=== PATIENT | female | born 2005 | race Hispanic/Latino ===

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

== ENCOUNTER 2025-02-12 04:06 | Emergency (ER) | payer SELFPAY ==
[~2025-02-12] VITALS: Ht 160 cm; Wt 65.8 kg
--- NOTE | 2025-02-12 04:12 | NUR ---
UA CUP PROVIDED
--- NOTE | 2025-02-12 04:58 | ERN ---
General Chief Complaint: Multiple Complaints Stated Complaint: ABD PAIN, BLOOD STOOLS Time Seen by MD: 04:13 Source: patient History of Present Illness Initial Comments 19-year-old female who comes in with concerns of abdominal pain and black stools. She has had associated diarrhea and nausea since July of this year. She states that she has been at [facility] where she was diagnosed with gastritis. They prescribed Pepcid and she missed a single dose of her Pepcid and her abdominal pain is back. Patient also states she has a history of anemia requiring numerous transfusions. Surgical history is an appendectomy and removal of an ovarian cyst. Looking through her medications she is also taking Levsin 0 0.125 mg. Allergies: Coded Allergies: No Known Drug Allergies (Unverified Allergy, Unknown, 04/16/19) Past Medical History Past Medical History: Other Medical History Other: GASTRITIS Past Surgical History: Appendectomy Surgical History Other: ovarian cyst removal Constitutional: (-) chills, (-) diaphoresis, (-) fever, (-) malaise, (-) weakness, (-) other documentation EENTM: (-) eye pain, (-) blurred vision, (-) tearing, (-) double vision, (-) ear pain, (-) ear discharge, (-) nose pain, (-) nose congestion, (-) throat pain, (-) Throat swelling, (-) mouth pain, (-) tooth pain, (-) mouth swelling, (-) other documentation Respiratory: (-) cough, (-) orthopnea, (-) short of breath, (-) stridor, (-) wheezing, (-) other documentation Cardiovascular: (-) chest pain, (-) edema, (-) palpitations, (-) syncope, (-) dyspnea on exertion, (-) other documentation Gastrointestinal/Abdominal: (+) nausea Genitourinary: (-) vaginal discharge, (-) vaginal bleeding, (-) dysuria, (-) frequency, (-) hematuria, (-) pain, (-) other documentation Musculoskeletal: (-) Neck pain, (-) back pain, (-) Flank Pain, (-) joint pain, (-) joint swelling, (-) muscle pain, (-) muscle stiffness, (-) gout, (-) other documentation Skin: (-) laceration, (-) contusion, (-) abrasion, (-) abscess, (-) rash, (-) change in color, (-) change in hair, (-) change in nails, (-) diaphoresis, (-) dryness, (-) other documentation Neuro: (-) altered mental status, (-) headache, (-) syncope, (-) paralysis, (-) numbness, (-) seizure, (-) pre-existing deficit, (-) tremors, (-) weakness, (-) dizziness, (-) slurred speech, (-) vertigo, (-) other documentation Physical Exam General Appearance: (+) mild distress Orientation: (+) alert, (+) oriented x 3 Head/Face Trauma: No Eye: bilateral eye normal inspection, bilateral eye PERRL, bilateral eye EOMI Ear, Nose, Throat: (+) hearing grossly normal, (+) normal ENT inspection, (+) moist mucous membraine Neck: (+) normal inspection, (+) supple, (+) full range of motion Respiratory: (+) chest non-tender, (+) lungs clear, (+) well ventilated Heart: (+) regular, (+) no gallop Vascular: (+) no edema, (+) normal peripheral pulse, (+) no JVD Gastrointestinal: (+) soft, (+) non-tender, (+) no organomegaly, (+) bowel sound present Results Laboratory and Microbiology Lab and Micro Result Laboratory Tests Test 02/12/25 05:18 White Blood Count 11.8 K/uL (4.8-10.8) H Red Blood Count 3.74 MIL/uL (4.00-5.50) L Hemoglobin 9.0 g/dL (12.0-16.0) L Hematocrit 30.3 % (36-48) L Mean Corpuscular Volume 81.0 fL (80-100) Mean Corpuscular Hemoglobin 24.1 pg (27.0-33.0) L Mean Corpuscular Hemoglobin Concent 29.7 g/dL (32.0-36.0) L Red Cell Distribution Width 14.9 % (11.0-15.5) Platelet Count 375 K/uL (130-400) Mean Platelet Volume 11.4 fL (7.5-10.5) H Immature Granulocyte % (Auto) 0.5 % (0-1) Neutrophils (%) (Auto) 70.6 % (40.0-77.0) Lymphocytes (%) (Auto) 22.2 % (21.0-51.0) Monocytes (%) (Auto) 5.7 % (3.0-13.0) Eosinophils (%) (Auto) 0.3 % (0.0-8.0) Basophils (%) (Auto) 0.7 % (0.0-5.0) Neutrophils # (Auto) 8.3 K/uL (1.8-7.7) H Lymphocytes # (Auto) 2.6 K/uL (1.0-4.8) Monocytes # (Auto) 0.7 K/uL (0.1-1.0) Eosinophils # (Auto) 0.03 K/uL (0.00-0.70) Basophils # (Auto) 0.08 K/uL (0.00-0.20) Absolute Immature Granulocyte (auto 0.06 K/uL (0-1) Nucleated Red Blood Cells 0.0 % (0.0-0.19) Red Blood Cell Morphology See comments Urine Color YELLOW (YELLOW) Urine Appearance CLOUDY (CLEAR) H Urine pH 6.0 (5.0-8.0) Urine Specific [place] 1.041 (1.001-1.031) Urine Protein 30 mg/dL (NEGATIVE) H Urine Glucose (UA) NEGATIVE mg/dL (NEGATIVE) Urine Ketones 40 mg/dL (NEGATIVE) H Urine Occult Blood NEGATIVE (NEGATIVE) Urine Nitrate NEGATIVE (NEGATIVE) Urine Bilirubin NEGATIVE mg/dL (NEGATIVE) Urine Urobilinogen 2.0 mg/dL (0.2-1.0) H Urine Leukocyte Esterase NEGATIVE S[place]/uL Urine RBC 0-1 /HPF (0-1) Urine WBC 2-5 /HPF (0-1) H Urine Squamous Epithelial Cells MANY /HPF (0-2) Urine Bacteria RARE /HPF (None Seen) Urine HCG, Qualitative NEGATIVE (NEGATIVE) Sodium Level 143 mmol/L (136-145) Potassium Level 3.5 mmol/L (3.5-5.1) Chloride Level 101 mmol/L (101-111) Carbon Dioxide Level 27 mmol/L (21-32) Blood Urea Nitrogen 26 mg/dL (7-18) H Creatinine 0.5 mg/dL (0.5-1.0) Glomerular Filtration Rate Calc 137 mL/min (>90) Random Glucose 111 mg/dL (70-105) H Total Calcium 8.7 mg/dL (8.5-10.1) Iron Level 12 mcg/dL (50-170) L Total Iron Binding Capacity 444 mcg/dL (250-450) Percent Iron Saturation 2.7 % (22-44) L Total Bilirubin 0.5 mg/dL (0.2-1.0) Direct Bilirubin 0.1 mg/dL (0.0-0.3) Aspartate Amino Transf (AST/SGOT) 26 U/L (10-37) Alanine Aminotransferase (ALT/SGPT) 39 U/L (12-78) Alkaline Phosphatase 89 U/L (50-136) Total Protein 7.6 g/dL (6.0-8.3) Albumin 4.1 g/dL (3.5-5.0) Lipase 29 U/L (16-77) Thyroid Stimulating Hormone (TSH) 2.27 uIU/mL (0.36-3.74) MDM MDM: Differential diagnosis: Gastritis, GI bleeding, Crohn's, ulcerative colitis, hemorrhoids, AVMs Rationale: Tests considered and ordered secondary to shared decision making include: Previous outside records reviewed: Old ER visits. Risk of complication and/or morbidity or mortality of patient management: None Medications-Per medication reconciliation Need for hospitalization: Patient does meet criteria for hospitalization. Need for emergency major/minor surgery: No There are no social concerns with this patient. Prescription drug management Prescriptions will include symptomatic care Patient's prior external medical records from other ER visits were reviewed by me as indicated. Prior testing and results from previous visits were reviewed. Prior tests were taken into account with medical decision making and resource utilization, independent historian/historians were used to obtain complete medical history. I independently interpreted the test that were performed, results were reviewed by me and considered findings on radiology if ordered. Patient's laboratory studies show mild microcytic anemia consistent with iron- deficiency. Iron panels show extremely low level so iron. Urine analysis shows dehydration with ketones. Chemistry panels otherwise unremarkable I will give the patient some IV iron and some IV omeprazole and then she can go home. I told her she needs to follow up with her primary care doctor and also see a GI doctor to confirm her gastritis as the source of her blood loss and iron loss. ED Course Orders Procedure Category Date Status Time Cbc With Differential LAB 02/12/25 Complete 04:28 Basic Metabolic Panel LAB 02/12/25 Complete 04:28 Lipase LAB 02/12/25 Complete 04:28 Hepatic Function Panel LAB 02/12/25 Complete 04:28 Urinalysis Profile LAB 02/12/25 Complete 04:28 ,Urine Test LAB 02/12/25 Complete 04:28 Ondansetron 4mg Inj PHA 02/12/25 Complete (Zofran 4mg Inj) 05:00 Lidocaine Hcl 2% PHA 02/12/25 Complete Viscous (Lidocaine Hcl 05:00 Mag/Alum/Simeth 30ml PHA 02/12/25 Complete (Maalox Plus 30ml) 05:00 Dicyclomine Hcl PHA 02/12/25 Complete (Bentyl 10mg/5ml 05:00 Iron Panel With %Sat LAB 02/12/25 Complete 04:36 Lactated Ringers PHA 02/12/25 Complete 1000ml (Lactated 04:36 Thyroid Stimulating LAB 02/12/25 Complete Hormone 04:28 Current Medications Medications (Trade) Dose Ordered Sig/Renan Route PRN Reason Start Time Stop Time Status Last Admin Dose Admin Al Hydroxide/Mg Hydroxide (MAALox PLUS 30ML) 30 ml ONCE ONCE PO 02/12/25 05:00 02/12/25 05:01 DC 02/12/25 05:09 Dicyclomine HCl (Bentyl 10mg/5ml Syrup) 10 mg ONCE ONCE PO 02/12/25 05:00 02/12/25 05:01 DC 02/12/25 05:09 Lactated Ringer's (Lactated Ringers 1000ml) 1,000 ml BOLUS STAT IV 02/12/25 04:36 02/12/25 05:00 DC 02/12/25 05:10 Lidocaine HCl (Lidocaine HCl 2% Viscous) 10 ml ONCE ONCE PO 02/12/25 05:00 02/12/25 05:01 DC 02/12/25 05:10 Ondansetron HCl (zoFRAN 4MG INJ) 4 mg ONCE ONCE IVP 02/12/25 05:00 02/12/25 05:01 DC 02/12/25 05:09 Vital Signs Date Time Temp Pulse Resp B/P (MAP) Pulse Ox O2 Delivery O2 Flow Rate FiO2 02/12/25 04:08 98.1 103 20 103/68 98 Room Air DX & DISP Disposition: Discharge Departure Impression: Primary Impression: Iron deficiency anemia Additional Impression: Gastritis Condition: Stable Additional Instructions: Your symptoms can be explained by gastritis causing blood loss and severe iron- deficiency. You need to take the antacid that I have prescribed for you and follow-up with your primary care physician as well as a doctor osteopathic. I also recommend that you get tested for Helicobacter pylori bacteria infection. This can be done either with your primary care physician or your doctor osteopathic. Please take your iron tablets please take your antacids. Drink plenty of fluids so that your urine runs clear at least once a day. Referrals: MIKE WALKER MD (PCP) GILLIAN DONALDSON MD Feb 12, 2025 04:58
[2025-02-12] MEDS: DICYCLOMINE HCL 10 MG/5 ML ML PO ONE (05:09)
[2025-02-12] MEDS: MAG/ALUM/SIMETH 30 ML UDCUP PO ONE (05:09)
[2025-02-12] MEDS: LIDOCAINE HCL 2% VISCOUS 15 ML UDCUP PO ONE (05:10)
[2025-02-12] MEDS: LACTATED RINGERS 1000ML IV STA (05:10)
[2025-02-12 05:24] LABS: IMMATURE GRANULOCYTE ABSOLUTE 0.06 K/uL (0-1); NUCLEATED RED BLOOD CELLS 0.0 % (0.0-0.19); PLATELET COUNT (AUTO) 375 K/uL (130-400); RED BLOOD CELL COUNT(AUTO) 3.74 MIL/uL (4.00-5.50); RED CELL DISTRIBUTION WIDTH 14.9 % (11.0-15.5); WHITE BLOOD COUNT (AUTO) 11.8 K/uL (4.8-10.8)
[2025-02-12 05:26] LABS: ADD UA MICROSCOPIC YES; APPEARANCE,URINE CLOUDY (CLEAR); GLUCOSE, URINE (UA) NEGATIVE (NEGATIVE); LEUKOCYTE ESTERASE ,URINE NEGATIVE Leu/uL (NEGATIVE); NITRATE,URINE NEGATIVE (NEGATIVE); OCCULT BLOOD,URINE NEGATIVE (NEGATIVE)
[2025-02-12 05:27] LABS: SQUAMOUS EPITHELIAL CELL,UR MANY /HPF (0-2)
[2025-02-12 05:28] LABS: HCG,QUALITATIVE URINE NEGATIVE (NEGATIVE)
[2025-02-12 05:38] LABS: CREATININE 0.5 mg/dL (0.5-1.0); GLOMERULAR FILTR. RATE CALC 137.0 mL/min (>90); GLUCOSE,RANDOM 111.0 mg/dL (70-105); SODIUM SERUM 143.0 mmol/L (136-145); UREA NITROGEN, BLOOD 26.0 mg/dL (7-18)
[2025-02-12 05:51] LABS: ASPARTATE AMINOTRANSFERASE 26.0 U/L (10-37); TOTAL PROTEIN, SERUM 7.6 g/dL (6.0-8.3)
[2025-02-12 06:25] LABS: % IRON SATURATION 2.7 % (22-44); IRON, SERUM 12.0 mcg/dL (50-170)
[2025-02-12] MEDS ORDERED: OMEP-272 PO (06:44)
[2025-02-12 07:28] VITALS: BP 103/47; PULSE 78; RESP 20; TEMP 98.5; O2SAT 99
== END 2025-02-12 07:53 | disposition home or self-care (01) ==
LOC: EDH 04:06
DX: K29.70 Gastritis, unspecified, without bleeding (principal); D50.9 Iron deficiency anemia, unspecified; Z90.49 Acquired absence of other specified parts of digestive tract; Z98.890 Other specified postprocedural states
CPT/HCPCS: 99284; 96374; 96375; 96361; 84443; 83540; 83550; 80076; 80048; 83690; 85025; 81001; 81025; 36415; J7120; J2405; J1756; J2470

== ENCOUNTER 2025-04-15 17:28 | Emergency (ER) | payer SELFPAY ==
[~2025-04-15] VITALS: Ht 162.6 cm; Wt 54.4 kg
[~2025-04-15 17:28] MED LIST: OMEP-272 PO
[2025-04-15] MEDS: MAG/ALUM/SIMETH 30 ML UDCUP PO ONE (18:00)
[2025-04-15] MEDS: LIDOCAINE HCL 2% VISCOUS 15 ML UDCUP PO ONE (18:00)
[2025-04-15 18:05] LABS: IMMATURE GRANULOCYTE ABSOLUTE 0.04 K/uL (0-1); NUCLEATED RED BLOOD CELLS 0.0 % (0.0-0.19); PLATELET COUNT (AUTO) 315 K/uL (130-400); RED BLOOD CELL COUNT(AUTO) 4.46 MIL/uL (4.00-5.50); RED CELL DISTRIBUTION WIDTH 18.5 % (11.0-15.5); WHITE BLOOD COUNT (AUTO) 10.4 K/uL (4.8-10.8)
[2025-04-15 18:17] LABS: CREATININE 0.6 mg/dL (0.5-1.0); GLOMERULAR FILTR. RATE CALC 131.0 mL/min (>90); GLUCOSE,RANDOM 95.0 mg/dL (70-105); SODIUM SERUM 140.0 mmol/L (136-145); UREA NITROGEN, BLOOD 13.0 mg/dL (7-18)
[2025-04-15 18:21] LABS: ASPARTATE AMINOTRANSFERASE 15.0 U/L (10-37); TOTAL PROTEIN, SERUM 7.4 g/dL (6.0-8.3)
--- NOTE | 2025-04-15 19:37 | HMCIMG ---
STUDY CT abdomen and pelvis without intravenous contrast HISTORY Abdominal pain TECHNIQUE Axial CT images of the abdomen and pelvis were obtained without intravenous contrast. COMPARISON None provided FINDINGS LUNG BASES The lung bases appear clear. No pleural effusions are seen. LIVER Diffuse decreased attenuation of the liver is present, in keeping with hepatic steatosis. GALLBLADDER AND BILE DUCTS The gallbladder appears within normal limits. No radiopaque gallstones are seen. No biliary ductal dilatation is evident. PANCREAS Unremarkable. SPLEEN Unremarkable. ADRENAL GLANDS Unremarkable. KIDNEYS, URETERS, AND BLADDER The kidneys appear within normal limits. There is no hydronephrosis or hydroureter. No urinary calculi are seen. The urinary bladder is unremarkable. STOMACH AND BOWEL The stomach and bowel are unremarkable in course and caliber. No evidence of bowel obstruction. No CT features to suggest enteritis or colitis. APPENDIX No CT evidence of acute appendicitis. PERITONEUM No free intraperitoneal air or fluid is identified. LYMPH NODES No lymphadenopathy is evident. REPRODUCTIVE A heterogeneous, lobulated, multilocular solid-cystic mass measuring approximately 12.3 x 8.9 x 9 cm is seen in the pelvis, extending superiorly into the mid abdomen up to the infraumbilical region. Internal heterogeneity of the cystic contents is noted. The uterus and adnexa are otherwise not well characterized on this noncontrast CT. VASCULATURE No abdominal aortic aneurysm is identified. ABDOMINAL WALL Small umbilical hernia with a fascial defect measuring approximately 1 cm. BONES No aggressive osseous lesion or acute osseous abnormality is seen. IMPRESSION * Large heterogeneous multilocular solid-cystic pelvic mass measuring approximately 12.3 x 8.9 x 9 cm, extending into the mid abdomen. In the present clinical context, tuttle differentials include primary ovarian epithelial neoplasm, complex benign ovarian lesion such as cystadenoma with internal hemorrhagic or proteinaceous components, and less likely a primary peritoneal or paraovarian cystic neoplasm. Further characterization with dedicated pelvic ultrasound and/or contrast-enhanced pelvic MRI, as well as gynecologic clinical correlation, is advised. * Hepatic steatosis. * Small umbilical hernia with a 1 cm fascial defect. /[place]
--- NOTE | 2025-04-15 20:35 | HMCIMG ---
EXAMINATION: COMPLETE TRANSABDOMINAL ULTRASOUND OF PELVIS. CLINICAL HISTORY: Abnormal CT. COMPARISON: CT of the abdomen and pelvis without contrast from the same day. TECHNIQUE: Multiple real-time grayscale images of the pelvis were obtained with a transabdominal transducer. In addition, color Doppler is medically necessary to assess for vascularity and blood flow. FINDINGS: The uterus is anteverted, normal in caliber, and measures 8.6 x 3.8 x 4.3 cm in the craniocaudal, AP, and transverse dimensions, respectively. The endometrium measures approximately 0.60 cm. Cervix appears normal. There is a large multiseptated cystic mass that measures 13.0 x 7.0 x 12.6 cm in the midline pelvis region with vascularity. Neither of the ovaries is separately visualized. There is no free fluid in the cul-de-sac. IMPRESSION: Large multiseptated cystic mass in the midline pelvis, of concern for ovarian origin. Recommend MRI pelvis with contrast. /[place]
[2025-04-15] MEDS: FAMOTIDINE 20MG VIAL IV ONE (21:20)
[2025-04-15 21:52] LABS: ADD UA MICROSCOPIC YES; APPEARANCE,URINE CLOUDY (CLEAR); GLUCOSE, URINE (UA) NEGATIVE (NEGATIVE); LEUKOCYTE ESTERASE ,URINE NEGATIVE Leu/uL (NEGATIVE); NITRATE,URINE NEGATIVE (NEGATIVE); OCCULT BLOOD,URINE NEGATIVE (NEGATIVE)
[2025-04-15 21:55] LABS: NON-SQUAMOUS EPITHELIAL CELL 1 /HPF (0-2); SQUAMOUS EPITHELIAL CELL,UR FEW /HPF (0-2); UNCLASSIFIED CRYSTAL 1 /HPF (None Seen)
[2025-04-15] MEDS ORDERED: KETO10TA2 PO (23:39)
--- NOTE | 2025-04-15 23:39 | ERN ---
General Chief Complaint: Abdominal Pain Stated Complaint: ABDOMINAL PAIN Time Seen by MD: 17:32 Time Seen by Midlevel: 17:32 Source: patient History of Present Illness Initial Comments The patient is a 19-year-old female presenting to the emergency department for evaluation of midepigastric abdominal pain that radiates down to her lower abdomen. She states the pain has been intermittently getting worse for the past five months. She has been seen by multiple primary care doctors and was told it could be gastritis or reflux. Allergies: Coded Allergies: No Known Drug Allergies (Unverified Allergy, Unknown, 04/16/19) Home Meds Active Scripts Ketorolac Tromethamine (Ketorolac Tromethamine) 10 Mg Tablet, 1 TAB PO TID for pain for 5 Days, #15 TAB 0 Refills Prov:JOSE DE JESUS MAI 04/15/25 Omeprazole Magnesium (Omeprazole Magnesium) 20 Mg Capsule.dr, 1 CAP PO DAILY for 30 Days, #30 CAP 0 Refills Prov:GILLIAN DONALDSON MD 02/12/25 Past Medical History Past Medical History: Other Medical History Other: GASTRITIS Past Surgical History: Appendectomy Surgical History Other: ovarian cyst removal ROS Dictation CONSTITUTIONAL: Negative except for HPI HEAD/FACE: Negative except for HPI EENT: Negative except for HPI RESPIRATORY: Negative except for HPI GASTROINTESTINAL/ABDOMINAL: Negative except for HPI GENITOURINARY: Negative except for HPI MUSCULOSKELETAL: Negative except for HPI INTEGUMENTARY: Negative except for HPI NEUROLOGICAL/PSYCH: Negative except for HPI HEMATOLOGIC/LYMPHATIC: Negative except for HPI All Systems Negative, Except as noted above. 13 point review of systems assessed and all negative except for above. Physical Exam Physical Exam Dictation Vital Signs reviewed General Appearance: Alert, oriented x 3, no acute distress, well developed, nourished. Head and Face: non-traumatic. Eyes: PERRL, pink conjunctivas, eyelid no trauma, anterior chamber with arcus senilis. Ears: Pinnas intact and no signs of trauma or erythema ear canals clear and no discharge TM no erythema Nose: No discharge, no bleeding. Oropharynx: Mouth normal, tongue pink, pharynx clear,no erythema, tonsils no exudates, no abscesses noted, mucous membrane moist Neck: Supple, non-tender, no thyromegaly, no masses, no JVD, no bruits Breast:Deferred Chest:No tenderness, no crepitus, no paradoxical movement, no retractions Lungs:Clear, well-ventilated, symmetric, no rales, no wheezing, no rhonchi, no stridor, good breath sounds bilaterally Heart: Regular rate, regular rhythm, no murmur, no gallops Vascular: no peripheral edema, Abdomen: Soft, positive bowel sounds, nondistended, no guarding, Diffuse abdominal tenderness worse on the lower abdomen, no rebound, no masses no hepatomegaly, no splenomegaly, no Damon's sign, no hernias. Rectal: Deferred Genital: Deferred Neurological: Normal speech, motor function intact, sensory function intact Musculoskeletal: Neck nontender, full range of motion, back nontender, full range of motion, Extremities: nontender, full range of motion Skin: Color pink, dry, no turgor, no rash, no lacerations, no abrasions, no contusions. Lymphatic: Deferred Results Laboratory and Microbiology Lab and Micro Result Laboratory Tests Test 04/15/25 17:55 04/15/25 21:45 White Blood Count 10.4 K/uL (4.8-10.8) Red Blood Count 4.46 MIL/uL (4.00-5.50) Hemoglobin 8.8 g/dL (12.0-16.0) L Hematocrit 32.4 % (36-48) L Mean Corpuscular Volume 72.6 fL (80-100) L Mean Corpuscular Hemoglobin 19.7 pg (27.0-33.0) L Mean Corpuscular Hemoglobin Concent 27.2 g/dL (32.0-36.0) L Red Cell Distribution Width 18.5 % (11.0-15.5) H Platelet Count 315 K/uL (130-400) Mean Platelet Volume 11.4 fL (7.5-10.5) H Immature Granulocyte % (Auto) 0.4 % (0-1) Neutrophils (%) (Auto) 85.3 % (40.0-77.0) H Lymphocytes (%) (Auto) 9.1 % (21.0-51.0) L Monocytes (%) (Auto) 4.7 % (3.0-13.0) Eosinophils (%) (Auto) 0.2 % (0.0-8.0) Basophils (%) (Auto) 0.3 % (0.0-5.0) Neutrophils # (Auto) 8.8 K/uL (1.8-7.7) H Lymphocytes # (Auto) 0.9 K/uL (1.0-4.8) L Monocytes # (Auto) 0.5 K/uL (0.1-1.0) Eosinophils # (Auto) 0.02 K/uL (0.00-0.70) Basophils # (Auto) 0.03 K/uL (0.00-0.20) Absolute Immature Granulocyte (auto 0.04 K/uL (0-1) Nucleated Red Blood Cells 0.0 % (0.0-0.19) White Cell Morphology Comment See comments Red Blood Cell Morphology See comments Sodium Level 140 mmol/L (136-145) Potassium Level 3.2 mmol/L (3.5-5.1) L Chloride Level 104 mmol/L (101-111) Carbon Dioxide Level 27 mmol/L (21-32) Blood Urea Nitrogen 13 mg/dL (7-18) Creatinine 0.6 mg/dL (0.5-1.0) Glomerular Filtration Rate Calc 131 mL/min (>90) Random Glucose 95 mg/dL (70-105) Total Calcium 8.1 mg/dL (8.5-10.1) L Total Bilirubin 1.1 mg/dL (0.2-1.0) H Aspartate Amino Transf (AST/SGOT) 15 U/L (10-37) Alanine Aminotransferase (ALT/SGPT) 26 U/L (12-78) Alkaline Phosphatase 91 U/L (50-136) Total Protein 7.4 g/dL (6.0-8.3) Albumin 4.0 g/dL (3.5-5.0) Lipase 18 U/L (16-77) Serum Test, Qualitative NEGATIVE (NEGATIVE) Urine Color YELLOW (YELLOW) Urine Appearance CLOUDY (CLEAR) H Urine pH 6.0 (5.0-8.0) Urine Specific [place] 1.034 (1.001-1.031) Urine Protein 50 mg/dL (NEGATIVE) H Urine Glucose (UA) NEGATIVE mg/dL (NEGATIVE) Urine Ketones 150 mg/dL (NEGATIVE) H Urine Occult Blood NEGATIVE (NEGATIVE) Urine Nitrate NEGATIVE (NEGATIVE) Urine Bilirubin NEGATIVE mg/dL (NEGATIVE) Urine Urobilinogen 0.2 mg/dL (0.2-1.0) Urine Leukocyte Esterase NEGATIVE [place]anya/uL Urine RBC 6-10 /HPF (0-1) H Urine WBC 2-5 /HPF (0-1) H Urine Squamous Epithelial Cells FEW /HPF (0-2) Urine Non-Squamous Epithelial Cells 1 /HPF (0-2) Urine Other Crystals (Auto) 1 /HPF (None Seen) Urine Bacteria RARE /HPF (None Seen) Labs Reviewed?: Yes MDM MDM: The patient is a 19-year-old female presenting to the emergency department for evaluation of midepigastric abdominal pain that radiates down to her lower abdomen. She states the pain has been intermittently getting worse for the past five months. She has been seen by multiple primary care doctors and was told it could be gastritis or reflux. On physical examination the patient appears pale and uncomfortable secondary to abdominal pain. Abdominal examination is remarkable for mild generalized abdominal tenderness with no rebound or guarding. An abdominal workup was initiated. Labs are stable however a CT scan of the abdomen and pelvis without contrast was obtained which shows a large heterogeneous multilocular solid cystic pelvic mass measuring a proximally 12.3 x 8.9 x 9 cm extending into the mid abdomen. A pelvic ultrasound and gynecological consultation was recommended. A pelvic ultrasound was obtained which reveals a large multiseptated cystic mass that measures 13.0 x 7.0 x 12.6 cm in the midline pelvis region with vascularity. There is positive blood flow in the large multiseptated cystic mass in the pelvis which is possibly arising from either of the ovaries however the ovaries are not visualized separately hands the ovarian blood flow can not be commented on at this time due to technical limitations. I was able to contact OBGYN Dr. Orellana. CT scan and ultrasound findings were discussed with OBGYN. He would like to see her in his office tomorrow at 8:30 a.m. in the morning. If I am able to control the pain in the emergency department the patient may be discharged home with outpatient follow up in the morning. The patient was given 2 mg of morphine and 15 mg of Toradol on repeat examination she states she reports feeling better and will be following up with OBGYN in the morning. Differential diagnosis: Ectopic , , intra-abdominal mass There are no social concerns with this patient. Prescription drug management Prescriptions will include: Toradol Medical management and examination interpretation discussions were had by me with other qualified healthcare professionals as indicated for the patient's care. ED Course Orders Procedure Category Date Status Time Cbc With Differential LAB 04/15/25 Complete 17:46 Comprehensive LAB 04/15/25 Complete Metabolic Panel 17:46 Lipase LAB 04/15/25 Complete 17:46 Testing, LAB 04/15/25 Complete Serum Hcg 17:46 Urinalysis Profile LAB 04/15/25 Complete 17:46 Ct Abdomen/Pelvis W/O CT 04/15/25 Resulted Contrast 17:46 Ondansetron 4mg Inj PHA 04/15/25 Complete (Zofran 4mg Inj) 18:00 Famotidine 20mg Vial PHA 04/15/25 Complete (Pepcid 20mg Vial) 18:00 Lidocaine Hcl 2% PHA 04/15/25 Complete Viscous (Lidocaine Hcl 18:00 Mag/Alum/Simeth 30ml PHA 04/15/25 Complete (Maalox Plus 30ml) 18:00 Us Pelvic Non-Ob Comp US 04/15/25 Resulted 19:40 Morphine 2mg Syg PHA 04/15/25 Complete (Morphine 2mg Syg) 20:30 Ondansetron 4mg Inj PHA 04/15/25 Complete (Zofran 4mg Inj) 20:30 Ketorolac PHA 04/15/25 Complete Tromethamine 15mg/Ml 22:30 Current Medications Medications (Trade) Dose Ordered Sig/Renan Route PRN Reason Start Time Stop Time Status Last Admin Dose Admin Al Hydroxide/Mg Hydroxide (MAALox PLUS 30ML) 30 ml ONCE ONCE PO 04/15/25 18:00 04/15/25 18:01 DC Famotidine (Pepcid 20mg Vial) 20 mg ONCE ONCE IV 04/15/25 18:00 04/15/25 18:01 DC 04/15/25 21:20 Ketorolac Tromethamine (toRADol) 15 mg ONCE ONCE IV 04/15/25 22:30 04/15/25 22:31 DC 04/15/25 22:19 Lidocaine HCl (Lidocaine HCl 2% Viscous) 10 ml ONCE ONCE PO 04/15/25 18:00 04/15/25 18:01 DC Morphine Sulfate (morPHINE 2MG SYG) 2 mg ONCE ONCE IVP 04/15/25 20:30 04/15/25 20:31 DC 04/15/25 21:21 Ondansetron HCl (zoFRAN 4MG INJ) 4 mg ONCE ONCE IVP 04/15/25 18:00 04/15/25 18:01 DC Ondansetron HCl (zoFRAN 4MG INJ) 4 mg ONCE ONCE IVP 04/15/25 20:30 04/15/25 20:31 DC 04/15/25 21:20 Vital Signs Date Time Temp Pulse Resp B/P (MAP) Pulse Ox O2 Delivery O2 Flow Rate FiO2 04/16/25 00:04 98.2 64 19 90/54 99 Room Air* 0 21 04/15/25 21:20 98.2 82 25 105/62 100 Room Air* 0 21 04/15/25 17:28 98.1 91 16 112/66 99 Room Air DX & DISP Disposition: Discharge Departure Impression: Primary Impression: Ovarian cystic mass Condition: Stable Scripts Ketorolac Tromethamine (Ketorolac Tromethamine) 10 Mg Tablet 1 TAB PO TID for pain for 5 Days, #15 TAB 0 Refills Prov: JOSE DE JESUS MAI PAC 04/15/25 Additional Instructions: Your CT scan and ultrasound show a large cystic mass. These findings were discussed with OBGYN Dr. Juarez over the phone who states he is available to see you at his clinic tomorrow on April 16, 2025 at 8:30 a.m.. Please follow up as discussed. Referrals: SELF,REFERRAL (PCP) PACO ORELLANA MD I have reviewed the case, and I agree with, Diagnosis and Plan I performed the substantive portion of the visit. I have reviewed and personally made and approve the management plan that is documented in the note by myself or the LUISA. I acknowledge for responsibility for the patient's management plan. JOSE DE JESUS MAI PAC Apr 15, 2025 23:39
[2025-04-16 00:04] VITALS: BP 90/54; PULSE 64; RESP 19; TEMP 98.2; O2SAT 99
== END 2025-04-16 00:12 | disposition home or self-care (01) ==
LOC: EDH 17:28
DX: N83.209 Unspecified ovarian cyst, unspecified side (principal); Z79.899 Other long term (current) drug therapy; Z87.19 Personal history of other diseases of the digestive system; Z90.49 Acquired absence of other specified parts of digestive tract; Z98.890 Other specified postprocedural states; Z87.42 Personal history of other diseases of the female genital tract
CPT/HCPCS: 99285; 74176; 96374; 96375; 76856; 80053; 84703; 83690; 85025; 81001; 36415; J1885; J1308; J2270; J2405